=== PATIENT | male | born 1930 | race Caucasian/White ===

== ENCOUNTER → 2016-11-30 | Outpatient (REF) | payer MEDICARE ==
[~2016-11-30] MED LIST: AZIT250T3 PO; CARV6.25 PO; CEFT500T3 PO; FINA5TAB2 PO; FISH500C PO; FLOM5CAP PO; MULT1TAB8 PO; OMEP40CA2 PO; TYLE167L PO; VITA-130 PO; VITA100037 PO
[2016-11-30 13:13] LABS: MEAN CORPUSCULAR HEMOGLOBIN 31.4 pg (27.0-33.0); MEAN CORPUSCULAR HGB CONC 32.5 g/dl (32.0-36.5); MEAN CORPUSCULAR VOLUME 96.6 fl (80.0-96.0); RED CELL DISTRIBUTION WIDTH 12.9 % (11.5-14.5); WHITE BLOOD COUNT 6.2 K/mm3 (4.0-10.0)
[2016-11-30 13:31] LABS: ALBUMIN 3.9 GM/DL (3.2-5.2); ALBUMIN/GLOBULIN RATIO 1.22 (1.00-1.93); BILIRUBIN,TOTAL 0.6 MG/DL (0.2-1.0); CALCIUM LEVEL 9.3 MG/DL (8.8-10.2); CREATININE FOR GFR 1.87 MG/DL (0.70-1.30); GLOMERULAR FILTRATION RATE 36.5 (>35); POTASSIUM SERUM 4.8 MEQ/L (3.5-5.1); TOTAL PROTEIN 7.1 GM/DL (6.4-8.2)
== END ==
LOC: M SFHCPLAZ 09:22
PROVIDERS: ATTEND Internal Medicine
DX: M79.7 Fibromyalgia (principal); N18.3 Chronic kidney disease, stage 3 (moderate); R73.01 Impaired fasting glucose; E78.00 Pure hypercholesterolemia, unspecified

== ENCOUNTER → 2017-06-11 | Outpatient (REF) | payer MEDICARE ==
[~2017-06-11] MED LIST changes: +AZIT-12 PO; -AZIT250T3 PO; -VITA-130 PO; -VITA100037 PO; +VITA100067 PO; +VITA500T PO
[2017-06-11 12:52] LABS: MEAN CORPUSCULAR HEMOGLOBIN 30.6 pg (27.0-33.0); MEAN CORPUSCULAR HGB CONC 32.1 g/dl (32.0-36.5); MEAN CORPUSCULAR VOLUME 95.4 fl (80.0-96.0); RED CELL DISTRIBUTION WIDTH 13.3 % (11.5-14.5)
[2017-06-11 13:08] LABS: ALBUMIN 3.9 GM/DL (3.2-5.2); ALBUMIN/GLOBULIN RATIO 1.15 (1.00-1.93); BILIRUBIN,TOTAL 0.6 MG/DL (0.2-1.0); CALCIUM LEVEL 9.1 MG/DL (8.8-10.2); CREATININE FOR GFR 2.05 MG/DL (0.70-1.30); GLOMERULAR FILTRATION RATE 32.8 (>35); POTASSIUM SERUM 4.7 MEQ/L (3.5-5.1); TOTAL PROTEIN 7.3 GM/DL (6.4-8.2)
== END ==
LOC: M SFHCPLAZ 09:31
PROVIDERS: ATTEND Internal Medicine
DX: N18.3 Chronic kidney disease, stage 3 (moderate) (principal); R73.01 Impaired fasting glucose

== ENCOUNTER 2018-01-21 02:28 | Inpatient (IN) | payer MEDICARE ==
[2018-01-21 06:55] LABS: BASO % 0.4 % (0.0-1.0); EOS # 0.1 10^3/uL (0.0-0.50); EOS % 1.2 % (0.0-3.0); HEMATOCRIT 37.1 % (42.0-52.0); HEMOGLOBIN 11.8 g/dl (13.5-17.5); IMMATURE GRANULOCYTE % 0.1 % (0-3.0); LYMPH # 1.6 10^3/uL (1.5-4.5); LYMPH % 18.7 % (24.0-44.0); MEAN CORPUSCULAR HEMOGLOBIN 29.9 pg (27.0-33.0); MEAN CORPUSCULAR HGB CONC 31.8 g/dl (32.0-36.5); MEAN CORPUSCULAR VOLUME 94.2 fl (80.0-96.0); MONO # 0.7 10^3/uL (0.0-0.8); MONO % 8.4 % (0.0-5.0); NEUTROPHILS % 71.2 % (36.0-66.0); PLATELET COUNT, AUTOMATED 278 10^3/uL (150-450); RED BLOOD COUNT 3.94 10^6/uL (4.30-6.10); RED CELL DISTRIBUTION WIDTH 14.6 % (11.5-14.5); WHITE BLOOD COUNT 8.4 10^3/uL (4.0-10.0)
[2018-01-21 06:56] LABS: ALBUMIN 3.6 GM/DL (3.2-5.2); ALBUMIN/GLOBULIN RATIO 1.09 (1.00-1.93); ALKALINE PHOSPHATASE 125 U/L (45-117); ALT/SGPT 83 U/L (12-78); ANION GAP 9 MEQ/L (8-16); AST/SGOT 66 U/L (7-37); BILIRUBIN,DIRECT 0.2 MG/DL (0.0-0.2); BILIRUBIN,TOTAL 0.7 MG/DL (0.2-1.0); BLOOD UREA NITROGEN 47 MG/DL (7-18); CARBON DIOXIDE LEVEL 26 MEQ/L (21-32); CHLORIDE LEVEL 108 MEQ/L (98-107); CK-MB VALUE MASS 1.9 NG/ML (<3.6); CPK CREATINE PHOSPHOKINASE 79 U/L (39-308); CREATININE FOR GFR 2.48 MG/DL (0.70-1.30); GLOMERULAR FILTRATION RATE 26.3 (>35); GLUCOSE, FASTING 154 MG/DL (70-100); LIPASE 262 U/L (73-393); POTASSIUM SERUM 4.6 MEQ/L (3.5-5.1); SODIUM LEVEL 143 MEQ/L (136-145); TOTAL PROTEIN 6.9 GM/DL (6.4-8.2); TROPONIN I 0.03 NG/ML (< 0.10)
[2018-01-21] MEDS: NS 500 ML IV (07:28)
[2018-01-21] MEDS: VITAMIN D 1,000 INTERNATIONAL UNITS TABLET PO (09:00)
[2018-01-21] MEDS: VITAMIN E 400 INTERNATIONAL UNITS CAP PO (09:00)
[2018-01-21 11:40] LABS: CK-MB VALUE MASS 2.2 NG/ML (<3.6); CPK CREATINE PHOSPHOKINASE 72 U/L (39-308); MB/CK RELATIVE INDEX 3.05 (< OR =4); TROPONIN I 0.08 NG/ML (< 0.10)
[2018-01-21 12:24] LABS: NT-PRO BNP 23221 PG/ML (<450)
[2018-01-21 12:27] LABS: LACTIC ACID SEPSIS PROTOCOL 1.8 MMOL/L (0.4-2.0)
[2018-01-21] MEDS: FUROSEMIDE 40 MG/4 ML VIAL (J1940) IV ×2 (12:59→17:00)
[2018-01-21] MEDS: AZITHROMYCIN INJ 500 MG, VIAL MATE ADAPTER 1 EACH in D5W 250 ML IV (13:00)
[2018-01-21] MEDS: ACETAMINOPHEN TAB 650MG DOSE (2X325MG) PO (14:34)
[2018-01-21] MEDS: cefTRIAXone SOD 1 GM in D5W MINI-BAG PLUS 50 ML IV (14:34)
[2018-01-21] MEDS: HEPARIN SOD (PORCINE) 5000 UNITS/ML VIAL SC ×2 (14:34→21:39)
[2018-01-21] MEDS: PERCOCET 5MG/325MG TAB PO (15:03)
[2018-01-21 17:12] LABS: CK-MB VALUE MASS 2.3 NG/ML (<3.6); CPK CREATINE PHOSPHOKINASE 75 U/L (39-308); MB/CK RELATIVE INDEX 3.06 (< OR =4)
[2018-01-21] MEDS: OMEPRAZOLE 20 MG CAP PO (18:43)
[2018-01-21] MEDS: ATORVASTATIN 20 MG TAB PO (18:43)
[2018-01-21] MEDS: FINASTERIDE 5 MG TAB PO (18:43)
[2018-01-21] MEDS: TAMSULOSIN 0.4 MG CAP PO (18:43)
[2018-01-21] MEDS: CALCITRIOL 0.25 MCG CAP (S0169) PO (18:43)
[2018-01-21] MEDS: MULTIVITAMINS/MINERALS THERAP 1 TAB PO (18:44)
[2018-01-21] MEDS: CARVedilol 12.5 MG TAB PO (21:00)
[2018-01-21] MEDS: MIRTAZAPINE 15 MG TAB PO (21:39)
[2018-01-22] MEDS ORDERED: SLF 3 ML SYR IV (03:30)
[2018-01-22 04:54] LABS: BASO % 0.3 % (0.0-1.0); EOS # 0.2 10^3/uL (0.0-0.50); EOS % 2.2 % (0.0-3.0); HEMATOCRIT 31.2 % (42.0-52.0); IMMATURE GRANULOCYTE % 0.1 % (0-3.0); LYMPH # 2.6 10^3/uL (1.5-4.5); LYMPH % 36.7 % (24.0-44.0); MEAN CORPUSCULAR HEMOGLOBIN 29.8 pg (27.0-33.0); MEAN CORPUSCULAR HGB CONC 32.1 g/dl (32.0-36.5); MEAN CORPUSCULAR VOLUME 92.9 fl (80.0-96.0); MONO # 0.7 10^3/uL (0.0-0.8); MONO % 10.4 % (0.0-5.0); NEUTROPHILS # 3.5 10^3/uL (1.8-7.7); NEUTROPHILS % 50.3 % (36.0-66.0); PLATELET COUNT, AUTOMATED 228 10^3/uL (150-450); RED BLOOD COUNT 3.36 10^6/uL (4.30-6.10); RED CELL DISTRIBUTION WIDTH 14.7 % (11.5-14.5)
[2018-01-22 05:15] LABS: ALBUMIN 2.8 GM/DL (3.2-5.2); ALBUMIN/GLOBULIN RATIO 0.93 (1.00-1.93); ALKALINE PHOSPHATASE 94 U/L (45-117); ALT/SGPT 48 U/L (12-78); ANION GAP 7 MEQ/L (8-16); AST/SGOT 20 U/L (7-37); BILIRUBIN,TOTAL 0.5 MG/DL (0.2-1.0); BLOOD UREA NITROGEN 49 MG/DL (7-18); CALCIUM LEVEL 8.2 MG/DL (8.8-10.2); CARBON DIOXIDE LEVEL 27 MEQ/L (21-32); CHLORIDE LEVEL 111 MEQ/L (98-107); CREATININE FOR GFR 2.24 MG/DL (0.70-1.30); GLOMERULAR FILTRATION RATE 29.5 (>35); GLUCOSE, FASTING 96 MG/DL (70-100); MAGNESIUM LEVEL 2.5 MG/DL (1.8-2.4); POTASSIUM SERUM 4.1 MEQ/L (3.5-5.1); SODIUM LEVEL 145 MEQ/L (136-145); TOTAL PROTEIN 5.8 GM/DL (6.4-8.2)
[2018-01-22] MEDS: HEPARIN SOD (PORCINE) 5000 UNITS/ML VIAL SC ×3 (05:30→21:29)
[2018-01-22] MEDS: SLF 3 ML SYR IV ×3 (05:30→21:29)
[2018-01-22 08:28] LABS: LACTIC ACID SEPSIS PROTOCOL 1.7 MMOL/L (0.4-2.0)
[2018-01-22] MEDS: VITAMIN D 1,000 INTERNATIONAL UNITS TABLET PO (09:00)
[2018-01-22] MEDS: VITAMIN E 400 INTERNATIONAL UNITS CAP PO (09:00)
[2018-01-22] MEDS: FUROSEMIDE 40 MG/4 ML VIAL (J1940) IV (09:43)
[2018-01-22] MEDS: OMEPRAZOLE 20 MG CAP PO (09:47)
[2018-01-22] MEDS: FINASTERIDE 5 MG TAB PO (09:48)
[2018-01-22] MEDS: CARVedilol 3.125 MG TAB PO ×2 (09:48→21:29)
[2018-01-22] MEDS: ATORVASTATIN 20 MG TAB PO (09:48)
[2018-01-22] MEDS: MULTIVITAMINS/MINERALS THERAP 1 TAB PO (09:48)
[2018-01-22] MEDS: cefTRIAXone SOD 1 GM in D5W MINI-BAG PLUS 50 ML IV (14:00)
[2018-01-22] MEDS: AZITHROMYCIN INJ 500 MG, VIAL MATE ADAPTER 1 EACH in D5W 250 ML IV (15:09)
[2018-01-22] MEDS: TAMSULOSIN 0.4 MG CAP PO (18:19)
[2018-01-22] MEDS: MOM 30ML SUSPENSION UDC PO (18:48)
[2018-01-22] MEDS: SENOKOT S TAB PO (18:48)
[2018-01-22] MEDS: MIRTAZAPINE 15 MG TAB PO (21:29)
[2018-01-22] MEDS: ACETAMINOPHEN TAB 650MG DOSE (2X325MG) PO (21:30)
[2018-01-23] MEDS: HEPARIN SOD (PORCINE) 5000 UNITS/ML VIAL SC ×3 (05:48→21:33)
[2018-01-23] MEDS: SLF 3 ML SYR IV ×3 (06:00→21:33)
[2018-01-23 06:41] LABS: BASO % 0.3 % (0.0-1.0); EOS # 0.2 10^3/uL (0.0-0.50); HEMATOCRIT 33.6 % (42.0-52.0); HEMOGLOBIN 10.9 g/dl (13.5-17.5); IMMATURE GRANULOCYTE % 0.3 % (0-3.0); LYMPH # 1.9 10^3/uL (1.5-4.5); LYMPH % 24.1 % (24.0-44.0); MEAN CORPUSCULAR HEMOGLOBIN 30.2 pg (27.0-33.0); MEAN CORPUSCULAR HGB CONC 32.4 g/dl (32.0-36.5); MEAN CORPUSCULAR VOLUME 93.1 fl (80.0-96.0); MONO # 0.8 10^3/uL (0.0-0.8); MONO % 10.2 % (0.0-5.0); NEUTROPHILS # 5.1 10^3/uL (1.8-7.7); NEUTROPHILS % 63.1 % (36.0-66.0); PLATELET COUNT, AUTOMATED 253 10^3/uL (150-450); RED BLOOD COUNT 3.61 10^6/uL (4.30-6.10); RED CELL DISTRIBUTION WIDTH 14.8 % (11.5-14.5)
[2018-01-23 07:08] LABS: ALBUMIN/GLOBULIN RATIO 0.91 (1.00-1.93); ALKALINE PHOSPHATASE 91 U/L (45-117); ALT/SGPT 46 U/L (12-78); ANION GAP 7 MEQ/L (8-16); AST/SGOT 18 U/L (7-37); BILIRUBIN,TOTAL 0.5 MG/DL (0.2-1.0); BLOOD UREA NITROGEN 43 MG/DL (7-18); CALCIUM LEVEL 8.6 MG/DL (8.8-10.2); CARBON DIOXIDE LEVEL 27 MEQ/L (21-32); CHLORIDE LEVEL 111 MEQ/L (98-107); CREATININE FOR GFR 1.89 MG/DL (0.70-1.30); GLOMERULAR FILTRATION RATE 35.9 (>35); GLUCOSE, FASTING 118 MG/DL (70-100); MAGNESIUM LEVEL 2.9 MG/DL (1.8-2.4); POTASSIUM SERUM 4.8 MEQ/L (3.5-5.1); SODIUM LEVEL 145 MEQ/L (136-145); TOTAL PROTEIN 6.3 GM/DL (6.4-8.2)
[2018-01-23] MEDS ORDERED: FUROSEMIDE 40 MG/4 ML VIAL (J1940) IV (09:00)
[2018-01-23] MEDS: MULTIVITAMINS/MINERALS THERAP 1 TAB PO (09:41)
[2018-01-23] MEDS: FINASTERIDE 5 MG TAB PO (09:41)
[2018-01-23] MEDS: OMEPRAZOLE 20 MG CAP PO (09:41)
[2018-01-23] MEDS: VITAMIN E 400 INTERNATIONAL UNITS CAP PO (09:41)
[2018-01-23] MEDS: ATORVASTATIN 20 MG TAB PO (09:41)
[2018-01-23] MEDS: CARVedilol 3.125 MG TAB PO ×2 (09:42→21:32)
[2018-01-23] MEDS: VITAMIN D 1,000 INTERNATIONAL UNITS TABLET PO (09:42)
[2018-01-23] MEDS: GI COCKTAIL 50ML BTL(HYOSCYAMINE/MAALOX/LIDOCAINE VISCOUS)(1:3:1) PO (09:44)
[2018-01-23] MEDS: FUROSEMIDE 40 MG/4 ML VIAL (J1940) IV (09:44)
[2018-01-23] MEDS: cefTRIAXone SOD 1 GM in D5W MINI-BAG PLUS 50 ML IV (14:13)
[2018-01-23] MEDS: AZITHROMYCIN INJ 500 MG, VIAL MATE ADAPTER 1 EACH in D5W 250 ML IV (15:30)
[2018-01-23] MEDS ORDERED: ONDANSETRON 4MG/2ML VIAL (J2405) As Ordered (17:40)
[2018-01-23] MEDS ORDERED: NS 250 ML IV (17:45)
[2018-01-23] MEDS: TAMSULOSIN 0.4 MG CAP PO (17:56)
[2018-01-23] MEDS: ONDANSETRON 4MG/2ML VIAL (J2405) IV (17:56)
[2018-01-23] MEDS: SODIUM CHLORIDE 0.9% 1000 ML IV (18:01)
[2018-01-23 19:09] LABS: LACTIC ACID SEPSIS PROTOCOL 3.7 MMOL/L (0.4-2.0)
[2018-01-23] MEDS: NS 1,000 ML IV (20:09)
[2018-01-23] MEDS: MIRTAZAPINE 15 MG TAB PO (21:31)
[2018-01-24] MEDS: HEPARIN SOD (PORCINE) 5000 UNITS/ML VIAL SC ×3 (05:38→21:02)
[2018-01-24] MEDS: SLF 3 ML SYR IV ×3 (05:39→22:00)
[2018-01-24 06:22] LABS: BASO % 0.1 % (0.0-1.0); EOS # 0.1 10^3/uL (0.0-0.50); EOS % 1.6 % (0.0-3.0); HEMATOCRIT 31.3 % (42.0-52.0); IMMATURE GRANULOCYTE % 0.3 % (0-3.0); LYMPH # 2.2 10^3/uL (1.5-4.5); LYMPH % 31.9 % (24.0-44.0); MEAN CORPUSCULAR HEMOGLOBIN 29.8 pg (27.0-33.0); MEAN CORPUSCULAR HGB CONC 31.9 g/dl (32.0-36.5); MEAN CORPUSCULAR VOLUME 93.2 fl (80.0-96.0); MONO # 0.7 10^3/uL (0.0-0.8); MONO % 10.7 % (0.0-5.0); NEUTROPHILS # 3.7 10^3/uL (1.8-7.7); NEUTROPHILS % 55.4 % (36.0-66.0); PLATELET COUNT, AUTOMATED 218 10^3/uL (150-450); RED BLOOD COUNT 3.36 10^6/uL (4.30-6.10); WHITE BLOOD COUNT 6.7 10^3/uL (4.0-10.0)
[2018-01-24 06:47] LABS: ALBUMIN 2.8 GM/DL (3.2-5.2); ALBUMIN/GLOBULIN RATIO 0.88 (1.00-1.93); ALKALINE PHOSPHATASE 81 U/L (45-117); ALT/SGPT 37 U/L (12-78); ANION GAP 7 MEQ/L (8-16); AST/SGOT 16 U/L (7-37); BILIRUBIN,TOTAL 0.4 MG/DL (0.2-1.0); BLOOD UREA NITROGEN 39 MG/DL (7-18); CALCIUM LEVEL 8.1 MG/DL (8.8-10.2); CARBON DIOXIDE LEVEL 27 MEQ/L (21-32); CHLORIDE LEVEL 110 MEQ/L (98-107); CREATININE FOR GFR 1.98 MG/DL (0.70-1.30); GLOMERULAR FILTRATION RATE 34.1 (>35); GLUCOSE, FASTING 99 MG/DL (70-100); MAGNESIUM LEVEL 2.7 MG/DL (1.8-2.4); POTASSIUM SERUM 4.4 MEQ/L (3.5-5.1); SODIUM LEVEL 144 MEQ/L (136-145)
[2018-01-24 07:26] LABS: TROPONIN I 0.06 NG/ML (< 0.10)
[2018-01-24] MEDS: FINASTERIDE 5 MG TAB PO (08:30)
[2018-01-24] MEDS: CALCITRIOL 0.25 MCG CAP (S0169) PO (08:30)
[2018-01-24] MEDS: ATORVASTATIN 20 MG TAB PO (08:31)
[2018-01-24] MEDS: MULTIVITAMINS/MINERALS THERAP 1 TAB PO (08:31)
[2018-01-24] MEDS: VITAMIN D 1,000 INTERNATIONAL UNITS TABLET PO (08:31)
[2018-01-24] MEDS: OMEPRAZOLE 20 MG CAP PO (08:31)
[2018-01-24] MEDS: VITAMIN E 400 INTERNATIONAL UNITS CAP PO (08:32)
[2018-01-24] MEDS: CARVedilol 3.125 MG TAB PO (08:32)
[2018-01-24] MEDS: AZITHROMYCIN INJ 500 MG, VIAL MATE ADAPTER 1 EACH in D5W 250 ML IV (12:56)
[2018-01-24] MEDS: ONDANSETRON 4MG/2ML VIAL (J2405) IV (14:01)
[2018-01-24 14:10] LABS: BEDSIDE GLUCOSE 184 MG/DL (83-110)
[2018-01-24] MEDS: CEFDINIR 300 MG CAP (OMNICEF) PO (15:54)
[2018-01-24 16:25] LABS: C REACTIVE PROTEIN QUANTITATIV 0.77 MG/DL (0.00-0.30)
[2018-01-24] MEDS: NS 500 ML IV (16:42)
[2018-01-24 17:12] LABS: ERYTHROCYTE SEDIMENTATION RATE 15 mm/hr (0-30)
[2018-01-24] MEDS: TAMSULOSIN 0.4 MG CAP PO (17:21)
[2018-01-24] MEDS: MEROPENEM INJ 1 GM in APPROPRIATE DILUENT 1 EA IV ×2 (17:21→23:38)
[2018-01-24] MEDS: CEFTAROLINE FOSAMIL 300 MG in D5W 50 ML IV (18:03)
[2018-01-24 18:55] LABS: LACTIC ACID SEPSIS PROTOCOL 3.4 MMOL/L (0.4-2.0)
[2018-01-24] MEDS: SODIUM CHLORIDE 0.9% 1000 ML IV (20:30)
[2018-01-24] MEDS: MIRTAZAPINE 15 MG TAB PO (21:04)
[2018-01-24] MEDS: DIGOXIN 0.25 MG TAB PO (21:04)
[2018-01-25] MEDS: HEPARIN SOD (PORCINE) 5000 UNITS/ML VIAL SC ×3 (05:01→21:13)
[2018-01-25] MEDS: CEFTAROLINE FOSAMIL 300 MG in D5W 50 ML IV ×2 (05:01→17:22)
[2018-01-25] MEDS: SLF 3 ML SYR IV ×3 (05:01→21:13)
[2018-01-25 05:06] LABS: BASO % 0.4 % (0.0-1.0); EOS # 0.1 10^3/uL (0.0-0.50); EOS % 1.6 % (0.0-3.0); HEMATOCRIT 30.8 % (42.0-52.0); HEMOGLOBIN 9.9 g/dl (13.5-17.5); IMMATURE GRANULOCYTE % 0.3 % (0-3.0); LYMPH # 2.5 10^3/uL (1.5-4.5); MEAN CORPUSCULAR HEMOGLOBIN 30.2 pg (27.0-33.0); MEAN CORPUSCULAR HGB CONC 32.1 g/dl (32.0-36.5); MEAN CORPUSCULAR VOLUME 93.9 fl (80.0-96.0); MONO # 0.7 10^3/uL (0.0-0.8); MONO % 10.8 % (0.0-5.0); NEUTROPHILS # 3.3 10^3/uL (1.8-7.7); NEUTROPHILS % 49.9 % (36.0-66.0); PLATELET COUNT, AUTOMATED 204 10^3/uL (150-450); RED BLOOD COUNT 3.28 10^6/uL (4.30-6.10); RED CELL DISTRIBUTION WIDTH 15.1 % (11.5-14.5); WHITE BLOOD COUNT 6.7 10^3/uL (4.0-10.0)
[2018-01-25 05:27] LABS: ALBUMIN 2.7 GM/DL (3.2-5.2); ALBUMIN/GLOBULIN RATIO 0.96 (1.00-1.93); ALKALINE PHOSPHATASE 98 U/L (45-117); ALT/SGPT 60 U/L (12-78); ANION GAP 6 MEQ/L (8-16); AST/SGOT 36 U/L (7-37); BILIRUBIN,TOTAL 0.4 MG/DL (0.2-1.0); BLOOD UREA NITROGEN 44 MG/DL (7-18); CALCIUM LEVEL 7.8 MG/DL (8.8-10.2); CARBON DIOXIDE LEVEL 24 MEQ/L (21-32); CHLORIDE LEVEL 112 MEQ/L (98-107); CREATININE FOR GFR 2.06 MG/DL (0.70-1.30); GLOMERULAR FILTRATION RATE 32.5 (>35); GLUCOSE, FASTING 84 MG/DL (70-100); MAGNESIUM LEVEL 2.8 MG/DL (1.8-2.4); POTASSIUM SERUM 4.7 MEQ/L (3.5-5.1); SODIUM LEVEL 142 MEQ/L (136-145); TOTAL PROTEIN 5.5 GM/DL (6.4-8.2)
[2018-01-25] MEDS: OMEPRAZOLE 20 MG CAP PO (08:57)
[2018-01-25] MEDS: ATORVASTATIN 20 MG TAB PO (08:57)
[2018-01-25] MEDS: DIGOXIN 0.125 MG TAB PO (08:57)
[2018-01-25] MEDS: FINASTERIDE 5 MG TAB PO (08:57)
[2018-01-25] MEDS: MEROPENEM INJ 1 GM in APPROPRIATE DILUENT 1 EA IV ×3 (08:57→23:18)
[2018-01-25] MEDS: VITAMIN E 400 INTERNATIONAL UNITS CAP PO (08:57)
[2018-01-25] MEDS: VITAMIN D 1,000 INTERNATIONAL UNITS TABLET PO (08:57)
[2018-01-25] MEDS: MULTIVITAMINS/MINERALS THERAP 1 TAB PO (08:57)
[2018-01-25] MEDS ORDERED: AZITHROMYCIN 250 MG TAB PO (09:00)
[2018-01-25] MEDS ORDERED: LIDOCAINE 1% MDV 20ML VIAL As Ordered (11:54)
[2018-01-25] MEDS: TAMSULOSIN 0.4 MG CAP PO (17:22)
[2018-01-25] MEDS: ONDANSETRON 4MG/2ML VIAL (J2405) IV (19:34)
[2018-01-25] MEDS: MIRTAZAPINE 15 MG TAB PO (21:13)
[2018-01-26 05:01] LABS: BASO % 0.3 % (0.0-1.0); EOS # 0.1 10^3/uL (0.0-0.50); EOS % 1.9 % (0.0-3.0); HEMATOCRIT 34.5 % (42.0-52.0); HEMOGLOBIN 10.9 g/dl (13.5-17.5); IMMATURE GRANULOCYTE % 0.3 % (0-3.0); LYMPH # 1.7 10^3/uL (1.5-4.5); MEAN CORPUSCULAR HEMOGLOBIN 30.1 pg (27.0-33.0); MEAN CORPUSCULAR HGB CONC 31.6 g/dl (32.0-36.5); MEAN CORPUSCULAR VOLUME 95.3 fl (80.0-96.0); MONO # 0.8 10^3/uL (0.0-0.8); MONO % 11.2 % (0.0-5.0); NEUTROPHILS # 4.6 10^3/uL (1.8-7.7); NEUTROPHILS % 63.3 % (36.0-66.0); PLATELET COUNT, AUTOMATED 222 10^3/uL (150-450); RED BLOOD COUNT 3.62 10^6/uL (4.30-6.10); WHITE BLOOD COUNT 7.3 10^3/uL (4.0-10.0)
[2018-01-26 05:26] LABS: ALBUMIN 2.9 GM/DL (3.2-5.2); ALBUMIN/GLOBULIN RATIO 0.81 (1.00-1.93); ALKALINE PHOSPHATASE 106 U/L (45-117); ALT/SGPT 57 U/L (12-78); ANION GAP 7 MEQ/L (8-16); AST/SGOT 29 U/L (7-37); BILIRUBIN,TOTAL 0.6 MG/DL (0.2-1.0); BLOOD UREA NITROGEN 40 MG/DL (7-18); CALCIUM LEVEL 8.6 MG/DL (8.8-10.2); CARBON DIOXIDE LEVEL 25 MEQ/L (21-32); CHLORIDE LEVEL 112 MEQ/L (98-107); CREATININE FOR GFR 2.08 MG/DL (0.70-1.30); GLOMERULAR FILTRATION RATE 32.2 (>35); GLUCOSE, FASTING 88 MG/DL (70-100); MAGNESIUM LEVEL 2.7 MG/DL (1.8-2.4); POTASSIUM SERUM 4.7 MEQ/L (3.5-5.1); SODIUM LEVEL 144 MEQ/L (136-145); TOTAL PROTEIN 6.5 GM/DL (6.4-8.2)
[2018-01-26] MEDS: HEPARIN SOD (PORCINE) 5000 UNITS/ML VIAL SC ×3 (06:00→22:00)
[2018-01-26] MEDS: CEFTAROLINE FOSAMIL 300 MG in D5W 50 ML IV ×2 (06:11→18:00)
[2018-01-26] MEDS: SLF 3 ML SYR IV ×3 (06:11→22:00)
[2018-01-26] MEDS: DIGOXIN 0.125 MG TAB PO (09:00)
[2018-01-26] MEDS: MULTIVITAMINS/MINERALS THERAP 1 TAB PO (09:03)
[2018-01-26] MEDS: VITAMIN E 400 INTERNATIONAL UNITS CAP PO (09:03)
[2018-01-26] MEDS: VITAMIN D 1,000 INTERNATIONAL UNITS TABLET PO (09:04)
[2018-01-26] MEDS: MEROPENEM INJ 1 GM in APPROPRIATE DILUENT 1 EA IV ×3 (09:04→23:47)
[2018-01-26] MEDS: FINASTERIDE 5 MG TAB PO (09:04)
[2018-01-26] MEDS: ATORVASTATIN 20 MG TAB PO (09:04)
[2018-01-26] MEDS: OMEPRAZOLE 20 MG CAP PO (09:04)
[2018-01-26] MEDS: FUROSEMIDE 40 MG/4 ML VIAL (J1940) IV (09:04)
[2018-01-26] MEDS: CALCITRIOL 0.25 MCG CAP (S0169) PO (10:03)
[2018-01-26] MEDS: TAMSULOSIN 0.4 MG CAP PO (17:30)
[2018-01-26] MEDS: MIRTAZAPINE 15 MG TAB PO (21:00)
[2018-01-27] MEDS: HEPARIN SOD (PORCINE) 5000 UNITS/ML VIAL SC ×3 (05:29→21:54)
[2018-01-27] MEDS: SLF 3 ML SYR IV ×3 (05:30→21:54)
[2018-01-27] MEDS: CEFTAROLINE FOSAMIL 300 MG in D5W 50 ML IV (05:30)
[2018-01-27 05:57] LABS: BASO % 0.4 % (0.0-1.0); EOS # 0.2 10^3/uL (0.0-0.50); EOS % 2.6 % (0.0-3.0); HEMATOCRIT 37.2 % (42.0-52.0); HEMOGLOBIN 11.8 g/dl (13.5-17.5); IMMATURE GRANULOCYTE % 0.3 % (0-3.0); LYMPH % 25.5 % (24.0-44.0); MEAN CORPUSCULAR HEMOGLOBIN 29.7 pg (27.0-33.0); MEAN CORPUSCULAR HGB CONC 31.7 g/dl (32.0-36.5); MEAN CORPUSCULAR VOLUME 93.7 fl (80.0-96.0); MONO % 12.3 % (0.0-5.0); NEUTROPHILS # 4.6 10^3/uL (1.8-7.7); NEUTROPHILS % 58.9 % (36.0-66.0); PLATELET COUNT, AUTOMATED 252 10^3/uL (150-450); RED BLOOD COUNT 3.97 10^6/uL (4.30-6.10); RED CELL DISTRIBUTION WIDTH 15.2 % (11.5-14.5); WHITE BLOOD COUNT 7.8 10^3/uL (4.0-10.0)
[2018-01-27 06:06] LABS: ALBUMIN 2.8 GM/DL (3.2-5.2); ALBUMIN/GLOBULIN RATIO 0.78 (1.00-1.93); ALKALINE PHOSPHATASE 96 U/L (45-117); ALT/SGPT 45 U/L (12-78); ANION GAP 6 MEQ/L (8-16); AST/SGOT 20 U/L (7-37); BILIRUBIN,TOTAL 0.6 MG/DL (0.2-1.0); BLOOD UREA NITROGEN 35 MG/DL (7-18); CALCIUM LEVEL 8.8 MG/DL (8.8-10.2); CARBON DIOXIDE LEVEL 27 MEQ/L (21-32); CHLORIDE LEVEL 111 MEQ/L (98-107); CREATININE FOR GFR 2.09 MG/DL (0.70-1.30); GLUCOSE, FASTING 102 MG/DL (70-100); MAGNESIUM LEVEL 2.6 MG/DL (1.8-2.4); POTASSIUM SERUM 4.3 MEQ/L (3.5-5.1); SODIUM LEVEL 144 MEQ/L (136-145); TOTAL PROTEIN 6.4 GM/DL (6.4-8.2)
[2018-01-27] MEDS: ATORVASTATIN 20 MG TAB PO (08:27)
[2018-01-27] MEDS: MULTIVITAMINS/MINERALS THERAP 1 TAB PO (08:27)
[2018-01-27] MEDS: FINASTERIDE 5 MG TAB PO (08:27)
[2018-01-27] MEDS: VITAMIN D 1,000 INTERNATIONAL UNITS TABLET PO (08:27)
[2018-01-27] MEDS: DIGOXIN 0.0625MG PER 1/2TABLET PO (08:27)
[2018-01-27] MEDS: MEROPENEM INJ 1 GM in APPROPRIATE DILUENT 1 EA IV ×3 (08:27→23:46)
[2018-01-27] MEDS: OMEPRAZOLE 20 MG CAP PO (08:27)
[2018-01-27] MEDS: VITAMIN E 400 INTERNATIONAL UNITS CAP PO (08:27)
[2018-01-27] MEDS: FUROSEMIDE 40 MG/4 ML VIAL (J1940) IV (08:28)
[2018-01-27] MEDS: ACETAMINOPHEN TAB 650MG DOSE (2X325MG) PO (13:38)
[2018-01-27] MEDS: TAMSULOSIN 0.4 MG CAP PO (17:29)
[2018-01-27] MEDS: ONDANSETRON 4MG/2ML VIAL (J2405) IV (17:29)
[2018-01-27] MEDS: MIRTAZAPINE 15 MG TAB PO (21:53)
[2018-01-28] MEDS: SLF 3 ML SYR IV ×2 (06:12→14:00)
[2018-01-28] MEDS: HEPARIN SOD (PORCINE) 5000 UNITS/ML VIAL SC ×2 (06:12→14:00)
[2018-01-28 06:37] LABS: BASO % 0.6 % (0.0-1.0); EOS # 0.3 10^3/uL (0.0-0.50); EOS % 3.7 % (0.0-3.0); HEMATOCRIT 33.7 % (42.0-52.0); IMMATURE GRANULOCYTE % 0.4 % (0-3.0); MEAN CORPUSCULAR HEMOGLOBIN 30.6 pg (27.0-33.0); MEAN CORPUSCULAR HGB CONC 32.6 g/dl (32.0-36.5); MEAN CORPUSCULAR VOLUME 93.6 fl (80.0-96.0); MONO # 0.9 10^3/uL (0.0-0.8); NEUTROPHILS % 55.3 % (36.0-66.0); PLATELET COUNT, AUTOMATED 226 10^3/uL (150-450); RED CELL DISTRIBUTION WIDTH 15.2 % (11.5-14.5); WHITE BLOOD COUNT 7.2 10^3/uL (4.0-10.0)
[2018-01-28 07:01] LABS: ALBUMIN 2.5 GM/DL (3.2-5.2); ALBUMIN/GLOBULIN RATIO 0.78 (1.00-1.93); ALKALINE PHOSPHATASE 82 U/L (45-117); ALT/SGPT 33 U/L (12-78); ANION GAP 7 MEQ/L (8-16); AST/SGOT 14 U/L (7-37); BILIRUBIN,TOTAL 0.5 MG/DL (0.2-1.0); BLOOD UREA NITROGEN 30 MG/DL (7-18); CALCIUM LEVEL 8.3 MG/DL (8.8-10.2); CARBON DIOXIDE LEVEL 27 MEQ/L (21-32); CHLORIDE LEVEL 110 MEQ/L (98-107); CREATININE FOR GFR 2.05 MG/DL (0.70-1.30); GLOMERULAR FILTRATION RATE 32.7 (>35); GLUCOSE, FASTING 94 MG/DL (70-100); POTASSIUM SERUM 4.2 MEQ/L (3.5-5.1); SODIUM LEVEL 144 MEQ/L (136-145); TOTAL PROTEIN 5.7 GM/DL (6.4-8.2)
[2018-01-28 07:02] LABS: MAGNESIUM LEVEL 2.5 MG/DL (1.8-2.4)
[2018-01-28] MEDS: ATORVASTATIN 20 MG TAB PO (10:09)
[2018-01-28] MEDS: CEPHALEXIN 500 MG CAP PO (10:09)
[2018-01-28] MEDS: OMEPRAZOLE 20 MG CAP PO (10:09)
[2018-01-28] MEDS: FINASTERIDE 5 MG TAB PO (10:10)
[2018-01-28] MEDS: VITAMIN D 1,000 INTERNATIONAL UNITS TABLET PO (10:10)
[2018-01-28] MEDS: VITAMIN E 400 INTERNATIONAL UNITS CAP PO (10:10)
[2018-01-28] MEDS: DIGOXIN 0.0625MG PER 1/2TABLET PO (10:10)
[2018-01-28] MEDS: CALCITRIOL 0.25 MCG CAP (S0169) PO (10:10)
[2018-01-28] MEDS: MULTIVITAMINS/MINERALS THERAP 1 TAB PO (10:11)
[2018-01-28] MEDS: FUROSEMIDE 40 MG/4 ML VIAL (J1940) IV (10:11)
== END 2018-01-28 14:56 | disposition home health service (06) | DRG 291 ==
LOC: M MSPAV 01-22 10:45 → M ICU 01-24 21:51 → M MSPAV 01-26 22:35 → M ICU 01-24 21:56 → M ED 02:28 → M ED INP 11:05 → M PCU 17:32
PROC: 0F9430Z Drainage of Gallbladder with Drainage Device, Percutaneous Approach (ICD-10-PCS; principal; 2018-01-25)
DX: I13.0 Hypertensive heart and chronic kidney disease with heart failure and stage 1 through stage 4 chronic kidney disease, or unspecified chronic kidney disease (principal); I50.23 Acute on chronic systolic (congestive) heart failure; N17.9 Acute kidney failure, unspecified; E87.2 Acidosis; J90 Pleural effusion, not elsewhere classified; K81.2 Acute cholecystitis with chronic cholecystitis; E78.5 Hyperlipidemia, unspecified; N18.3 Chronic kidney disease, stage 3 (moderate); I45.10 Unspecified right bundle-branch block; I25.5 Ischemic cardiomyopathy; N40.0 Benign prostatic hyperplasia without lower urinary tract symptoms; G47.00 Insomnia, unspecified; E55.9 Vitamin D deficiency, unspecified; K21.9 Gastro-esophageal reflux disease without esophagitis; Z79.899 Other long term (current) drug therapy

== ENCOUNTER → 2018-02-08 | Outpatient (REF) | payer MEDICARE ==
[2018-02-08 15:28] LABS: HEMATOCRIT 39.4 % (42.0-52.0); HEMOGLOBIN 12.7 g/dl (13.5-17.5); MEAN CORPUSCULAR HGB CONC 32.2 g/dl (32.0-36.5); MEAN CORPUSCULAR VOLUME 93.1 fl (80.0-96.0); PLATELET COUNT, AUTOMATED 294 10^3/uL (150-450); RED BLOOD COUNT 4.23 10^6/uL (4.30-6.10); RED CELL DISTRIBUTION WIDTH 14.4 % (11.5-14.5); WHITE BLOOD COUNT 7.9 10^3/uL (4.0-10.0)
[2018-02-08 16:04] LABS: ALBUMIN 3.6 GM/DL (3.2-5.2); ALKALINE PHOSPHATASE 101 U/L (45-117); ALT/SGPT 22 U/L (12-78); ANION GAP 10 MEQ/L (8-16); AST/SGOT 16 U/L (7-37); BILIRUBIN,TOTAL 0.7 MG/DL (0.2-1.0); BLOOD UREA NITROGEN 33 MG/DL (7-18); CALCIUM LEVEL 9.3 MG/DL (8.8-10.2); CARBON DIOXIDE LEVEL 27 MEQ/L (21-32); CHLORIDE LEVEL 103 MEQ/L (98-107); CREATININE FOR GFR 1.99 MG/DL (0.70-1.30); DIGOXIN LEVEL 1.5 NG/ML (0.5-2.0); GLOMERULAR FILTRATION RATE 33.9 (>35); GLUCOSE, FASTING 121 MG/DL (70-100); MAGNESIUM LEVEL 2.4 MG/DL (1.8-2.4); POTASSIUM SERUM 4.8 MEQ/L (3.5-5.1); SODIUM LEVEL 140 MEQ/L (136-145); TOTAL PROTEIN 7.6 GM/DL (6.4-8.2)
== END ==
LOC: M SFHCPLAZ 14:18
DX: N18.3 Chronic kidney disease, stage 3 (moderate) (principal); I42.9 Cardiomyopathy, unspecified; Z87.19 Personal history of other diseases of the digestive system
CPT/HCPCS: 80162

== ENCOUNTER → 2018-02-17 | Outpatient (CLI) | payer MEDICARE ==
[~2018-02-17] MED LIST changes: -AZIT-12 PO; -CARV6.25 PO; -CEFT500T3 PO; -FINA5TAB2 PO; -FISH500C PO; -FLOM5CAP PO; +ISOVUE-370 76% 100ML VIAL (Q9967) As Ordered; -MULT1TAB8 PO; -OMEP40CA2 PO; -TYLE167L PO; -VITA100067 PO; -VITA500T PO
== END ==
LOC: M RADPRO 12:31
DX: K81.0 Acute cholecystitis (principal)
CPT/HCPCS: 47537

== ENCOUNTER → 2018-03-10 | Outpatient (REF) | payer MEDICARE ==
[2018-03-10 12:50] LABS: APPEARANCE, URINE HAZY (CLEAR); BACTERIA, URINE AUTO NEGATIVE (NEGATIVE); BILIRUBIN, URINE AUTO NEGATIVE (NEGATIVE); BLOOD, URINE BLOOD NEGATIVE (NEGATIVE); COLOR, URINE YELLOW (YELLOW); GLUCOSE, URINE (UA) AUTO NEGATIVE (NEGATIVE); KETONE, URINE AUTO TRACE mg/dL (NEGATIVE); LEUKOCYTE ESTERASE, URINE AUTO NEGATIVE (NEGATIVE); MUCUS, URINE SMALL (NEGATIVE); NITRITE, URINE AUTO NEGATIVE (NEGATIVE); PROTEIN, URINE AUTO NEGATIVE (NEGATIVE); RBC, URINE AUTO 0 /HPF (0-3); SPECIFIC GRAVITY URINE AUTO 1.018 (1.002-1.035); SQUAMOUS EPITHELIAL CELL UR AU 0 /HPF (0-6); URIC ACID CRYSTALS SMALL; UROBILINOGEN, URINE AUTO 0.2 mg/dL (0.0-2.0); WBC, URINE AUTO 3 /HPF (0-3)
== END ==
LOC: M SFHCPLAZ 08:56 → M SFHCADAM 08:57
DX: R35.0 Frequency of micturition (principal)
CPT/HCPCS: 81001

== ENCOUNTER 2018-04-16 07:29 | Emergency (ER) | payer MEDICARE ==
[2018-04-16 09:48] LABS: ALBUMIN 3.3 GM/DL (3.2-5.2); ALBUMIN/GLOBULIN RATIO 0.87 (1.00-1.93); ALKALINE PHOSPHATASE 149 U/L (45-117); ALT/SGPT 31 U/L (12-78); ANION GAP 13 MEQ/L (8-16); AST/SGOT 33 U/L (7-37); BILIRUBIN,DIRECT 0.7 MG/DL (0.0-0.2); BILIRUBIN,TOTAL 1.9 MG/DL (0.2-1.0); BLOOD UREA NITROGEN 30 MG/DL (7-18); CALCIUM LEVEL 9.1 MG/DL (8.8-10.2); CARBON DIOXIDE LEVEL 23 MEQ/L (21-32); CHLORIDE LEVEL 105 MEQ/L (98-107); DIGOXIN LEVEL 1.8 NG/ML (0.5-2.0); GLUCOSE, FASTING 126 MG/DL (70-100); LIPASE 161 U/L (73-393); POTASSIUM SERUM 4.7 MEQ/L (3.5-5.1); SODIUM LEVEL 141 MEQ/L (136-145); TOTAL PROTEIN 7.1 GM/DL (6.4-8.2)
[2018-04-16 10:24] LABS: BASO % 0.1 % (0.0-1.0); HEMATOCRIT 41.7 % (42.0-52.0); HEMOGLOBIN 13.3 g/dl (13.5-17.5); IMMATURE GRANULOCYTE % 0.4 % (0-3.0); LYMPH # 0.6 10^3/uL (1.5-4.5); LYMPH % 4.3 % (24.0-44.0); MEAN CORPUSCULAR HEMOGLOBIN 29.6 pg (27.0-33.0); MEAN CORPUSCULAR HGB CONC 31.9 g/dl (32.0-36.5); MEAN CORPUSCULAR VOLUME 92.7 fl (80.0-96.0); MONO # 1.3 10^3/uL (0.0-0.8); MONO % 9.6 % (0.0-5.0); NEUTROPHILS # 11.6 10^3/uL (1.8-7.7); NEUTROPHILS % 85.6 % (36.0-66.0); PLATELET COUNT, AUTOMATED 230 10^3/uL (150-450); RED CELL DISTRIBUTION WIDTH 16.6 % (11.5-14.5); WHITE BLOOD COUNT 13.5 10^3/uL (4.0-10.0)
== END 2018-04-16 12:08 | disposition home or self-care (01) ==
LOC: M ED 07:29
DX: K59.00 Constipation, unspecified (principal); E86.0 Dehydration; I12.9 Hypertensive chronic kidney disease with stage 1 through stage 4 chronic kidney disease, or unspecified chronic kidney disease; N18.3 Chronic kidney disease, stage 3 (moderate); I50.9 Heart failure, unspecified; I25.10 Atherosclerotic heart disease of native coronary artery without angina pectoris; N40.0 Benign prostatic hyperplasia without lower urinary tract symptoms; E78.9 Disorder of lipoprotein metabolism, unspecified; K21.9 Gastro-esophageal reflux disease without esophagitis; Z79.82 Long term (current) use of aspirin; Z79.899 Other long term (current) drug therapy; Z88.1 Allergy status to other antibiotic agents
CPT/HCPCS: 74019

== ENCOUNTER 2018-04-20 07:36 | Inpatient (IN) | payer MEDICARE ==
[2018-04-20 08:07] LABS: BASO % 0.1 % (0.0-1.0); HEMATOCRIT 39.5 % (42.0-52.0); HEMOGLOBIN 13.1 g/dl (13.5-17.5); IMMATURE GRANULOCYTE % 0.7 % (0-3.0); LYMPH # 0.9 10^3/uL (1.5-4.5); LYMPH % 4.8 % (24.0-44.0); MEAN CORPUSCULAR HEMOGLOBIN 29.6 pg (27.0-33.0); MEAN CORPUSCULAR HGB CONC 33.2 g/dl (32.0-36.5); MEAN CORPUSCULAR VOLUME 89.4 fl (80.0-96.0); MONO # 1.8 10^3/uL (0.0-0.8); NEUTROPHILS # 15.1 10^3/uL (1.8-7.7); NEUTROPHILS % 84.4 % (36.0-66.0); PLATELET COUNT, AUTOMATED 189 10^3/uL (150-450); RED BLOOD COUNT 4.42 10^6/uL (4.30-6.10); RED CELL DISTRIBUTION WIDTH 16.4 % (11.5-14.5); WHITE BLOOD COUNT 17.9 10^3/uL (4.0-10.0)
[2018-04-20 08:29] LABS: ALKALINE PHOSPHATASE 728 U/L (45-117); ALT/SGPT 755 U/L (12-78); ANION GAP 21 MEQ/L (8-16); AST/SGOT 798 U/L (7-37); BLOOD UREA NITROGEN 98 MG/DL (7-18); CALCIUM LEVEL 9.5 MG/DL (8.8-10.2); CARBON DIOXIDE LEVEL 17 MEQ/L (21-32); CHLORIDE LEVEL 101 MEQ/L (98-107); CPK CREATINE PHOSPHOKINASE 310 U/L (39-308); CREATININE FOR GFR 3.97 MG/DL (0.70-1.30); GLOMERULAR FILTRATION RATE 15.3 (>35); GLUCOSE, FASTING 110 MG/DL (70-100); SODIUM LEVEL 139 MEQ/L (136-145)
[2018-04-20 08:30] LABS: ALBUMIN 3.3 GM/DL (3.2-5.2); ALBUMIN/GLOBULIN RATIO 0.83 (1.00-1.93); BILIRUBIN,DIRECT 2.2 MG/DL (0.0-0.2); BILIRUBIN,TOTAL 2.9 MG/DL (0.2-1.0); LIPASE 706 U/L (73-393); TOTAL PROTEIN 7.3 GM/DL (6.4-8.2); TROPONIN I 0.26 NG/ML (< 0.10)
[2018-04-20 08:32] LABS: POTASSIUM SERUM 6.4 MEQ/L (3.5-5.1)
[2018-04-20 08:42] LABS: CK-MB VALUE MASS 7.4 NG/ML (<3.6); MB/CK RELATIVE INDEX 2.38 (< OR =4); NT-PRO BNP 54310 PG/ML (<450)
[2018-04-20 08:45] LABS: DIGOXIN LEVEL 2.8 NG/ML (0.5-2.0)
[2018-04-20] MEDS: DEXTROSE 50% 50 ML SYRINGE IV (09:06)
[2018-04-20] MEDS: SOD POLYSTYRENE SULFONATE SUSP 15 GM/60 ML UD PO (09:12)
[2018-04-20] MEDS: HumuLIN R (REGULAR) INSULIN (NovoLIN R) **100U/ML** PER UNIT IV (09:13)
[2018-04-20] MEDS: CALCIUM CHLORIDE 10% 1 GM in D5W 100 ML IV (09:14)
[2018-04-20] MEDS: NS 500 ML IV (09:19)
[2018-04-20] MEDS ORDERED: VANCOMYCIN HCL 500 MG in D5W MINI-BAG PLUS 100 ML IV (12:20)
[2018-04-20] MEDS ORDERED: ONDANSETRON 4MG/2ML VIAL (J2405) IV (12:30)
[2018-04-20] MEDS ORDERED: VANCOMYCIN INTERMITTENT/PULSE DOSING BY CLINICAL PHARMACIST PER DOSING PROTOCOL XX (13:00)
[2018-04-20] MEDS ORDERED: DIGOXIN IMMUNE FAB (OVINE) 40MG VIAL (J1162) IV (13:15)
[2018-04-20 13:20] LABS: ABG O2 SATURATION 99.1 % (95.0-99.0)
[2018-04-20] MEDS: PIPERACILLIN/TAZOBACTAM SOD 2.25 GM in D5W MINI-BAG PLUS 50 ML IV ×2 (13:23→19:00)
[2018-04-20 13:24] LABS: ABG PARTIAL PRESSURE O2 150.9 mmHg (75.0-100.0)
[2018-04-20 13:25] LABS: ABG pH (ARTERIAL) 7.468 UNITS (7.350-7.450)
[2018-04-20 13:26] LABS: ABG BASE EXCESS -6.8 (-2.0-2.0); ABG HCO3 14.2 MEQ/L (22.0-26.0); ABG TOTAL CO2 14.8 MEQ/L (23.0-31.0)
[2018-04-20 13:38] LABS: HEMATOCRIT 38.6 % (42.0-52.0); HEMOGLOBIN 12.9 g/dl (13.5-17.5); MEAN CORPUSCULAR HEMOGLOBIN 29.6 pg (27.0-33.0); MEAN CORPUSCULAR HGB CONC 33.4 g/dl (32.0-36.5); MEAN CORPUSCULAR VOLUME 88.5 fl (80.0-96.0); PLATELET COUNT, AUTOMATED 171 10^3/uL (150-450); RED BLOOD COUNT 4.36 10^6/uL (4.30-6.10); RED CELL DISTRIBUTION WIDTH 16.1 % (11.5-14.5); WHITE BLOOD COUNT 18.1 10^3/uL (4.0-10.0)
[2018-04-20 13:53] LABS: INR 1.77; PROTHROMBIN TIME 20.9 SECONDS (12.1-14.4)
[2018-04-20 13:54] LABS: PARTIAL THROMBOPLASTIN TIME 30.8 SECONDS (25.4-37.6)
[2018-04-20] MEDS: DIGOXIN IMMUNE FAB IV (13:59)
[2018-04-20] MEDS: NS IV (13:59)
[2018-04-20 14:01] LABS: LACTIC ACID SEPSIS PROTOCOL 5.7 MMOL/L (0.4-2.0)
[2018-04-20] MEDS ORDERED: LIDOCAINE 2% MDV 20 ML VIAL As Ordered (14:21)
[2018-04-20] MEDS ORDERED: HEPARIN 1,000 UNITS/ML 10ML VIAL (FOR RADIOLOGY& DIALYSIS ONLY) As Ordered (14:21)
[2018-04-20 15:17] LABS: ALBUMIN 3.2 GM/DL (3.2-5.2); ALBUMIN/GLOBULIN RATIO 0.89 (1.00-1.93); ALKALINE PHOSPHATASE 765 U/L (45-117); ALT/SGPT 789 U/L (12-78); ANION GAP 18 MEQ/L (8-16); AST/SGOT 954 U/L (7-37); BILIRUBIN,TOTAL 2.9 MG/DL (0.2-1.0); BLOOD UREA NITROGEN 100 MG/DL (7-18); CALCIUM LEVEL 9.6 MG/DL (8.8-10.2); CARBON DIOXIDE LEVEL 14 MEQ/L (21-32); CHLORIDE LEVEL 106 MEQ/L (98-107); CK-MB VALUE MASS 9.4 NG/ML (<3.6); CPK CREATINE PHOSPHOKINASE 493 U/L (39-308); CREATININE FOR GFR 3.65 MG/DL (0.70-1.30); GLOMERULAR FILTRATION RATE 16.8 (>35); GLUCOSE, FASTING 93 MG/DL (70-100); MAGNESIUM LEVEL 3.2 MG/DL (1.8-2.4); SODIUM LEVEL 138 MEQ/L (136-145); TOTAL PROTEIN 6.8 GM/DL (6.4-8.2); TROPONIN I 0.21 NG/ML (< 0.10)
[2018-04-20 15:19] LABS: POTASSIUM SERUM 5.7 MEQ/L (3.5-5.1)
[2018-04-20] MEDS ORDERED: LIDOCAINE 1% MDV 20ML VIAL As Ordered (16:06)
[2018-04-20] MEDS: HEPARIN SOD (PORCINE) 5000 UNITS/ML VIAL SC ×2 (17:18→22:00)
[2018-04-20] MEDS: VANCOMYCIN HCL 1,000 MG, VIAL MATE ADAPTER 1 EACH in D5W 250 ML IV (17:19)
[2018-04-20 20:14] LABS: CK-MB VALUE MASS 9.9 NG/ML (<3.6); CPK CREATINE PHOSPHOKINASE 559 U/L (39-308); MB/CK RELATIVE INDEX 1.77 (< OR =4); TROPONIN I 0.37 NG/ML (< 0.10)
[2018-04-20] MEDS: MIRTAZAPINE 15 MG TAB PO (20:31)
[2018-04-21] MEDS: PIPERACILLIN/TAZOBACTAM SOD 2.25 GM in D5W MINI-BAG PLUS 50 ML IV ×4 (00:28→21:10)
[2018-04-21 05:32] LABS: BASO % 0.1 % (0.0-1.0); HEMATOCRIT 39.6 % (42.0-52.0); HEMOGLOBIN 13.4 g/dl (13.5-17.5); IMMATURE GRANULOCYTE % 0.4 % (0-3.0); LYMPH % 5.2 % (24.0-44.0); MEAN CORPUSCULAR HEMOGLOBIN 29.8 pg (27.0-33.0); MEAN CORPUSCULAR HGB CONC 33.8 g/dl (32.0-36.5); MEAN CORPUSCULAR VOLUME 88.2 fl (80.0-96.0); MONO # 1.7 10^3/uL (0.0-0.8); MONO % 9.4 % (0.0-5.0); NEUTROPHILS # 15.6 10^3/uL (1.8-7.7); NEUTROPHILS % 84.9 % (36.0-66.0); PLATELET COUNT, AUTOMATED 106 10^3/uL (150-450); RED BLOOD COUNT 4.49 10^6/uL (4.30-6.10); RED CELL DISTRIBUTION WIDTH 17.2 % (11.5-14.5); WHITE BLOOD COUNT 18.4 10^3/uL (4.0-10.0)
[2018-04-21] MEDS: HEPARIN SOD (PORCINE) 5000 UNITS/ML VIAL SC ×3 (06:00→21:19)
[2018-04-21 07:11] LABS: ANION GAP 15 MEQ/L (8-16); AST/SGOT 464 U/L (7-37); BLOOD UREA NITROGEN 87 MG/DL (7-18); CALCIUM LEVEL 8.6 MG/DL (8.8-10.2); CARBON DIOXIDE LEVEL 22 MEQ/L (21-32); CHLORIDE LEVEL 103 MEQ/L (98-107); CREATININE FOR GFR 3.05 MG/DL (0.70-1.30); GLOMERULAR FILTRATION RATE 20.7 (>35); GLUCOSE, FASTING 115 MG/DL (70-100); SODIUM LEVEL 140 MEQ/L (136-145)
[2018-04-21 07:12] LABS: ALBUMIN 2.7 GM/DL (3.2-5.2); ALBUMIN/GLOBULIN RATIO 0.79 (1.00-1.93); ALKALINE PHOSPHATASE 669 U/L (45-117); ALT/SGPT 570 U/L (12-78); BILIRUBIN,TOTAL 2.5 MG/DL (0.2-1.0); MAGNESIUM LEVEL 2.9 MG/DL (1.8-2.4); TOTAL PROTEIN 6.1 GM/DL (6.4-8.2); VANCOMYCIN RANDOM 8.7 UG/ML
[2018-04-21] MEDS: MULTIVITAMINS/MINERALS THERAP 1 TAB PO (09:00)
[2018-04-21] MEDS: ATORVASTATIN 20 MG TAB PO (09:00)
[2018-04-21] MEDS: TAMSULOSIN 0.4 MG CAP PO (09:00)
[2018-04-21] MEDS: ASPIRIN 81 MG ENTERIC TAB PO (09:00)
[2018-04-21] MEDS: OMEPRAZOLE 20 MG CAP PO (09:00)
[2018-04-21] MEDS: FINASTERIDE 5 MG TAB PO (09:00)
[2018-04-21] MEDS: VITAMIN D 1,000 INTERNATIONAL UNITS TABLET PO (09:00)
[2018-04-21 09:26] LABS: ESTIMATED AVERAGE GLUCOSE 137 MG/DL (60-110); HEMOGLOBIN A1c 6.4 %
[2018-04-21 09:29] LABS: CHOLESTEROL LEVEL 91 MG/DL (<200); DIGOXIN LEVEL 3.9 NG/ML (0.5-2.0); HDL CHOLESTEROL 28 MG/DL (>40); LDL CHOLESTEROL 40.6 MG/DL (<100); NON-HDL-C 63 MG/DL; TRIGLYCERIDES LEVEL 112 MG/DL (<150)
[2018-04-21] MEDS: HEPARIN 1,000 UNITS/ML 10ML VIAL (FOR RADIOLOGY& DIALYSIS ONLY) IV (10:15)
[2018-04-21] MEDS: HEPARIN 1,000 UNITS/ML 10ML VIAL (FOR RADIOLOGY& DIALYSIS ONLY) XX (10:15)
[2018-04-21] MEDS: VANCOMYCIN HCL 1,000 MG, VIAL MATE ADAPTER 1 EACH in D5W 250 ML IV (10:24)
[2018-04-21 10:26] LABS: BEDSIDE GLUCOSE 107 MG/DL (83-110)
[2018-04-21] MEDS: VANCOMYCIN HCL 500 MG in D5W MINI-BAG PLUS 100 ML IV (11:44)
[2018-04-21 17:52] LABS: HEMATOCRIT 35.9 % (42.0-52.0); HEMOGLOBIN 12.1 g/dl (13.5-17.5); MEAN CORPUSCULAR HEMOGLOBIN 29.4 pg (27.0-33.0); MEAN CORPUSCULAR HGB CONC 33.7 g/dl (32.0-36.5); MEAN CORPUSCULAR VOLUME 87.3 fl (80.0-96.0); RED BLOOD COUNT 4.11 10^6/uL (4.30-6.10); RED CELL DISTRIBUTION WIDTH 16.3 % (11.5-14.5)
[2018-04-21] MEDS ORDERED: METOPROLOL 5 MG/5 ML VIAL IV (18:00)
[2018-04-21 18:04] LABS: PLATELET COUNT, AUTOMATED 64 10^3/uL (150-450)
[2018-04-21 18:07] LABS: IMMATURE PLATELET FRACTION % 7.6 % (0.0-10.9)
[2018-04-21 18:16] LABS: ANION GAP 12 MEQ/L (8-16); BLOOD UREA NITROGEN 55 MG/DL (7-18); CALCIUM LEVEL 8.7 MG/DL (8.8-10.2); CARBON DIOXIDE LEVEL 26 MEQ/L (21-32); CHLORIDE LEVEL 103 MEQ/L (98-107); CK-MB VALUE MASS 4.9 NG/ML (<3.6); CPK CREATINE PHOSPHOKINASE 383 U/L (39-308); CREATININE FOR GFR 2.02 MG/DL (0.70-1.30); GLOMERULAR FILTRATION RATE 33.3 (>35); GLUCOSE, FASTING 121 MG/DL (70-100); MAGNESIUM LEVEL 2.6 MG/DL (1.8-2.4); MB/CK RELATIVE INDEX 1.27 (< OR =4); POTASSIUM SERUM 3.5 MEQ/L (3.5-5.1); SODIUM LEVEL 141 MEQ/L (136-145); TROPONIN I 0.33 NG/ML (< 0.10)
[2018-04-21 18:41] LABS: BEDSIDE GLUCOSE 110 MG/DL (83-110)
[2018-04-21] MEDS: MIRTAZAPINE 15 MG TAB PO (20:07)
[2018-04-21] MEDS: METOPROLOL 5 MG/5 ML VIAL IV (21:10)
[2018-04-22] MEDS: METOPROLOL 5 MG/5 ML VIAL IV ×4 (02:57→21:00)
[2018-04-22] MEDS: PIPERACILLIN/TAZOBACTAM SOD 2.25 GM in D5W MINI-BAG PLUS 50 ML IV ×2 (04:09→10:14)
[2018-04-22 05:10] LABS: BASO % 0.1 % (0.0-1.0); HEMATOCRIT 36.7 % (42.0-52.0); HEMOGLOBIN 12.3 g/dl (13.5-17.5); IMMATURE GRANULOCYTE % 0.4 % (0-3.0); LYMPH # 0.9 10^3/uL (1.5-4.5); LYMPH % 5.5 % (24.0-44.0); MEAN CORPUSCULAR HEMOGLOBIN 29.2 pg (27.0-33.0); MEAN CORPUSCULAR HGB CONC 33.5 g/dl (32.0-36.5); MEAN CORPUSCULAR VOLUME 87.2 fl (80.0-96.0); MONO # 1.3 10^3/uL (0.0-0.8); MONO % 8.3 % (0.0-5.0); NEUTROPHILS # 13.8 10^3/uL (1.8-7.7); NEUTROPHILS % 85.7 % (36.0-66.0); RED BLOOD COUNT 4.21 10^6/uL (4.30-6.10); RED CELL DISTRIBUTION WIDTH 16.2 % (11.5-14.5); WHITE BLOOD COUNT 16.1 10^3/uL (4.0-10.0)
[2018-04-22 05:14] LABS: PLATELET COUNT, AUTOMATED 43 10^3/uL (150-450)
[2018-04-22 05:26] LABS: ALBUMIN 2.6 GM/DL (3.2-5.2); ALBUMIN/GLOBULIN RATIO 0.74 (1.00-1.93); ALKALINE PHOSPHATASE 558 U/L (45-117); ALT/SGPT 437 U/L (12-78); ANION GAP 11 MEQ/L (8-16); AST/SGOT 174 U/L (7-37); BLOOD UREA NITROGEN 61 MG/DL (7-18); CALCIUM LEVEL 8.3 MG/DL (8.8-10.2); CARBON DIOXIDE LEVEL 24 MEQ/L (21-32); CHLORIDE LEVEL 105 MEQ/L (98-107); CREATININE FOR GFR 2.39 MG/DL (0.70-1.30); GLOMERULAR FILTRATION RATE 27.4 (>35); GLUCOSE, FASTING 122 MG/DL (70-100); MAGNESIUM LEVEL 2.7 MG/DL (1.8-2.4); POTASSIUM SERUM 3.7 MEQ/L (3.5-5.1); SODIUM LEVEL 140 MEQ/L (136-145); TOTAL PROTEIN 6.1 GM/DL (6.4-8.2); VANCOMYCIN RANDOM 24.9 UG/ML
[2018-04-22] MEDS: HEPARIN SOD (PORCINE) 5000 UNITS/ML VIAL SC (05:33)
[2018-04-22] MEDS: ASPIRIN 81 MG ENTERIC TAB PO (07:30)
[2018-04-22] MEDS: OMEPRAZOLE 20 MG CAP PO (07:31)
[2018-04-22] MEDS: MULTIVITAMINS/MINERALS THERAP 1 TAB PO (07:31)
[2018-04-22] MEDS: ATORVASTATIN 20 MG TAB PO (07:31)
[2018-04-22] MEDS: FINASTERIDE 5 MG TAB PO (07:31)
[2018-04-22] MEDS: TAMSULOSIN 0.4 MG CAP PO (07:31)
[2018-04-22] MEDS: VITAMIN D 1,000 INTERNATIONAL UNITS TABLET PO (07:31)
[2018-04-22 08:06] LABS: HEPATITIS B CORE ANTIBODY IGG Negative (Negative)
[2018-04-22 08:17] LABS: REASON FOR REVIEW PLATELET MORPHOLOGY; SLIDE REVIEW Report; SOURCE PERIPHERAL SMEAR
[2018-04-22 08:41] LABS: DIGOXIN LEVEL 2.6 NG/ML (0.5-2.0)
[2018-04-22 09:31] LABS: HEPATITIS B SURFACE ANTIBODY NEGATIVE (POSITIVE)
[2018-04-22 09:38] LABS: HEPATITIS B SURFACE ANTIGEN NEGATIVE (NEGATIVE)
[2018-04-22 09:54] LABS: HEPATITIS C VIRUS ABY INDEX 0.1 INDEX (<0.8)
[2018-04-22 10:08] LABS: HEPATITIS B CORE ANTIBODY IGM NEGATIVE (NEGATIVE)
[2018-04-22] MEDS: FUROSEMIDE 100 MG/10 ML VIAL (J1940) IV (11:43)
[2018-04-22] MEDS ORDERED: MEROPENEM INJ 1 GM in APPROPRIATE DILUENT 1 EA IV (12:45)
[2018-04-22] MEDS ORDERED: VARIBAR PUDDING 40% w/v 230ML TUBE As Ordered (13:38)
[2018-04-22] MEDS ORDERED: VARIBAR NECTAR 40% w/v 240ML SUSP BTL As Ordered ×2 (13:38→13:39)
[2018-04-22] MEDS ORDERED: E-Z-PAQUE 96% w/w SUSP 176GM BTL As Ordered (13:38)
[2018-04-22] MEDS: MEROPENEM INJ 500 MG in APPROPRIATE DILUENT 1 EA IV (13:47)
[2018-04-22 14:37] LABS: LDH LACTATE DEHYDROGENASE 387 U/L (87-241)
[2018-04-22] MEDS: VANCOMYCIN HCL 750 MG, VIAL MATE ADAPTER 1 EACH in D5W 250 ML IV (17:25)
[2018-04-22] MEDS: MIRTAZAPINE 15 MG TAB PO (20:28)
[2018-04-23] MEDS: MEROPENEM INJ 500 MG in APPROPRIATE DILUENT 1 EA IV ×2 (02:50→13:20)
[2018-04-23] MEDS: METOPROLOL 5 MG/5 ML VIAL IV (02:50)
[2018-04-23 04:45] LABS: BASO % 0.1 % (0.0-1.0); HEMATOCRIT 39.7 % (42.0-52.0); HEMOGLOBIN 13.1 g/dl (13.5-17.5); IMMATURE GRANULOCYTE % 0.5 % (0-3.0); LYMPH % 6.3 % (24.0-44.0); MEAN CORPUSCULAR HEMOGLOBIN 29.1 pg (27.0-33.0); MEAN CORPUSCULAR VOLUME 88.2 fl (80.0-96.0); MONO # 1.6 10^3/uL (0.0-0.8); MONO % 9.7 % (0.0-5.0); NEUTROPHILS # 13.7 10^3/uL (1.8-7.7); NEUTROPHILS % 83.4 % (36.0-66.0); RED CELL DISTRIBUTION WIDTH 16.7 % (11.5-14.5); WHITE BLOOD COUNT 16.5 10^3/uL (4.0-10.0)
[2018-04-23 04:52] LABS: PLATELET COUNT, AUTOMATED 53 10^3/uL (150-450)
[2018-04-23 04:53] LABS: IMMATURE PLATELET FRACTION % 7.4 % (0.0-10.9)
[2018-04-23 05:07] LABS: ALBUMIN 2.7 GM/DL (3.2-5.2); ALBUMIN/GLOBULIN RATIO 0.66 (1.00-1.93); ALKALINE PHOSPHATASE 519 U/L (45-117); ALT/SGPT 425 U/L (12-78); ANION GAP 16 MEQ/L (8-16); AST/SGOT 158 U/L (7-37); BILIRUBIN,TOTAL 2.3 MG/DL (0.2-1.0); BLOOD UREA NITROGEN 77 MG/DL (7-18); CALCIUM LEVEL 8.6 MG/DL (8.8-10.2); CARBON DIOXIDE LEVEL 19 MEQ/L (21-32); CHLORIDE LEVEL 107 MEQ/L (98-107); CREATININE FOR GFR 2.68 MG/DL (0.70-1.30); GLUCOSE, FASTING 129 MG/DL (70-100); POTASSIUM SERUM 3.8 MEQ/L (3.5-5.1); SODIUM LEVEL 142 MEQ/L (136-145); TOTAL PROTEIN 6.8 GM/DL (6.4-8.2)
[2018-04-23] MEDS: ATORVASTATIN 20 MG TAB PO (09:00)
[2018-04-23] MEDS: FINASTERIDE 5 MG TAB PO (09:00)
[2018-04-23] MEDS: VITAMIN D 1,000 INTERNATIONAL UNITS TABLET PO (09:00)
[2018-04-23] MEDS: TAMSULOSIN 0.4 MG CAP PO (09:00)
[2018-04-23] MEDS: OMEPRAZOLE 20 MG CAP PO (09:00)
[2018-04-23] MEDS: MULTIVITAMINS/MINERALS THERAP 1 TAB PO (09:00)
[2018-04-23] MEDS: MIRTAZAPINE 15 MG TAB PO (20:08)
[2018-04-23] MEDS: ACETAMINOPHEN 325 MG/10.15 ML UDC PO (22:00)
[2018-04-24 00:06] LABS: HEPARIN INDUCED PLATELET ABY 0.149 OD (0.000-0.400)
[2018-04-24] MEDS: MEROPENEM INJ 500 MG in APPROPRIATE DILUENT 1 EA IV ×2 (02:58→15:58)
[2018-04-24 05:45] LABS: BASO % 0.1 % (0.0-1.0); HEMATOCRIT 37.4 % (42.0-52.0); HEMOGLOBIN 12.4 g/dl (13.5-17.5); LYMPH # 0.8 10^3/uL (1.5-4.5); LYMPH % 5.5 % (24.0-44.0); MEAN CORPUSCULAR HEMOGLOBIN 29.2 pg (27.0-33.0); MEAN CORPUSCULAR HGB CONC 33.2 g/dl (32.0-36.5); MONO # 1.6 10^3/uL (0.0-0.8); MONO % 10.5 % (0.0-5.0); NEUTROPHILS # 12.6 10^3/uL (1.8-7.7); NEUTROPHILS % 82.9 % (36.0-66.0); RED BLOOD COUNT 4.25 10^6/uL (4.30-6.10); RED CELL DISTRIBUTION WIDTH 16.8 % (11.5-14.5); WHITE BLOOD COUNT 15.2 10^3/uL (4.0-10.0)
[2018-04-24 05:48] LABS: IMMATURE PLATELET FRACTION % 7.9 % (0.0-10.9); PLATELET COUNT, AUTOMATED 67 10^3/uL (150-450)
[2018-04-24 06:02] LABS: ALBUMIN 2.5 GM/DL (3.2-5.2); ALBUMIN/GLOBULIN RATIO 0.74 (1.00-1.93); ALKALINE PHOSPHATASE 384 U/L (45-117); ALT/SGPT 338 U/L (12-78); ANION GAP 14 MEQ/L (8-16); AST/SGOT 88 U/L (7-37); BLOOD UREA NITROGEN 99 MG/DL (7-18); CALCIUM LEVEL 8.3 MG/DL (8.8-10.2); CARBON DIOXIDE LEVEL 25 MEQ/L (21-32); CHLORIDE LEVEL 107 MEQ/L (98-107); CREATININE FOR GFR 2.82 MG/DL (0.70-1.30); GLOMERULAR FILTRATION RATE 22.6 (>35); GLUCOSE, FASTING 173 MG/DL (70-100); MAGNESIUM LEVEL 3.2 MG/DL (1.8-2.4); POTASSIUM SERUM 3.4 MEQ/L (3.5-5.1); SODIUM LEVEL 146 MEQ/L (136-145); TOTAL PROTEIN 5.9 GM/DL (6.4-8.2); VANCOMYCIN RANDOM 17.2 UG/ML
[2018-04-24] MEDS: PANTOPRAZOLE 40MG INJ (PROTONIX) (C9113) IV (09:00)
[2018-04-24] MEDS: OMEPRAZOLE 20 MG CAP PO (09:00)
[2018-04-24] MEDS: MULTIVITAMINS/MINERALS THERAP 1 TAB PO (09:50)
[2018-04-24] MEDS: FINASTERIDE 5 MG TAB PO (09:50)
[2018-04-24] MEDS: TAMSULOSIN 0.4 MG CAP PO (09:50)
[2018-04-24] MEDS: ATORVASTATIN 20 MG TAB PO (09:53)
[2018-04-24] MEDS: VITAMIN D 1,000 INTERNATIONAL UNITS TABLET PO (09:53)
[2018-04-24] MEDS: LORazepam 2 MG/ML VIAL (J2060) IV (11:09)
[2018-04-24] MEDS ORDERED: VANCOMYCIN HCL 500 MG in D5W MINI-BAG PLUS 100 ML IV (12:00)
[2018-04-24] MEDS: METOCLOPRAMIDE INJ 10MG/2ML VIAL (J2765) IV (15:59)
[2018-04-24] MEDS ORDERED: METOPROLOL TART 25 MG TABLET NG (16:45)
[2018-04-24 18:12] LABS: ANION GAP 15 MEQ/L (8-16); BLOOD UREA NITROGEN 50 MG/DL (7-18); CALCIUM LEVEL 5.4 MG/DL (8.8-10.2); CARBON DIOXIDE LEVEL 16 MEQ/L (21-32); CHLORIDE LEVEL 123 MEQ/L (98-107); CREATININE FOR GFR 1.39 MG/DL (0.70-1.30); GLOMERULAR FILTRATION RATE 51.2 (>35); GLUCOSE, FASTING 95 MG/DL (70-100); MAGNESIUM LEVEL 1.8 MG/DL (1.8-2.4); SODIUM LEVEL 154 MEQ/L (136-145)
[2018-04-24 18:34] LABS: POTASSIUM SERUM 2.9 MEQ/L (3.5-5.1)
[2018-04-24] MEDS: MIRTAZAPINE 15 MG TAB PO (20:36)
[2018-04-24] MEDS: POTASSIUM CHLORIDE 10% LIQ 20 MEQ/15 ML UDC PO (20:36)
[2018-04-24] MEDS: CALCIUM CARB SUSP 1250MG/5ML UNIT DOSE CUP PO (20:36)
[2018-04-24] MEDS ORDERED: HYOSCYAMINE SULFATE 0.125 MG SUBL TABLET PO (21:30)
[2018-04-24] MEDS ORDERED: ACETAMINOPHEN TAB 650MG DOSE (2X325MG) PO (21:30)
[2018-04-24] MEDS ORDERED: BISACODYL 10 MG SUPP PR (21:30)
[2018-04-24] MEDS ORDERED: FLEET ENEMA PR (21:30)
[2018-04-24] MEDS ORDERED: MORPHINE 4 MG/ML 1ML VIAL/SYRINGE (J2270) IV (21:30)
[2018-04-24] MEDS ORDERED: ATROPINE SULFATE 1% OP SOLN 2 ML BTL SL (21:30)
[2018-04-25] MEDS: SCOPOLAMINE 1MG TRANSDERMAL PATCH TOP (01:58)
[2018-04-25] MEDS: LORazepam 2 MG/ML VIAL (J2060) IV (04:14)
[2018-04-25] MEDS: MORPHINE 10MG/0.5ML ORAL CONCENTRATE SOLUTION U/D SL (15:03)
[2018-04-25] MEDS: LORazepam 0.5 MG TAB SL (16:54)
[2018-04-27] MEDS: MORPHINE 10MG/0.5ML ORAL CONCENTRATE SOLUTION U/D SL (11:27)
[2018-04-27] MEDS: LORazepam 0.5 MG TAB SL (12:56)
== END 2018-04-27 14:05 | disposition expired | DRG 871 ==
LOC: M MS5PR 04-24 21:55 → M ED 07:36 → M ED INP 12:21 → M ICU 15:17
PROC: 02HV33Z Insertion of Infusion Device into Superior Vena Cava, Percutaneous Approach (ICD-10-PCS; principal; 2018-04-20)
PROC: B5131ZA Fluoroscopy of Right Jugular Veins using Low Osmolar Contrast, Guidance (ICD-10-PCS; 2018-04-20)
PROC: 0F9440Z Drainage of Gallbladder with Drainage Device, Percutaneous Endoscopic Approach (ICD-10-PCS; 2018-04-20)
PROC: 5A1D70Z Performance of Urinary Filtration, Intermittent, Less than 6 Hours Per Day (ICD-10-PCS; 2018-04-20)
PROC: 0JH63XZ Insertion of Tunneled Vascular Access Device into Chest Subcutaneous Tissue and Fascia, Percutaneous Approach (ICD-10-PCS; 2018-04-20)
DX: A41.9 Sepsis, unspecified organism (principal); J96.01 Acute respiratory failure with hypoxia; G93.41 Metabolic encephalopathy; I50.43 Acute on chronic combined systolic (congestive) and diastolic (congestive) heart failure; J18.9 Pneumonia, unspecified organism; N17.9 Acute kidney failure, unspecified; E87.4 Mixed disorder of acid-base balance; K81.2 Acute cholecystitis with chronic cholecystitis; I13.0 Hypertensive heart and chronic kidney disease with heart failure and stage 1 through stage 4 chronic kidney disease, or unspecified chronic kidney disease; N25.81 Secondary hyperparathyroidism of renal origin; Z51.5 Encounter for palliative care; Z66 Do not resuscitate; R65.20 Severe sepsis without septic shock; B95.2 Enterococcus as the cause of diseases classified elsewhere; D69.6 Thrombocytopenia, unspecified; I48.91 Unspecified atrial fibrillation; I25.5 Ischemic cardiomyopathy; I25.10 Atherosclerotic heart disease of native coronary artery without angina pectoris; K21.9 Gastro-esophageal reflux disease without esophagitis; N18.3 Chronic kidney disease, stage 3 (moderate); E87.5 Hyperkalemia; Z98.49 Cataract extraction status, unspecified eye; T46.0X1A Poisoning by cardiac-stimulant glycosides and drugs of similar action, accidental (unintentional), initial encounter; E78.5 Hyperlipidemia, unspecified; N40.1 Benign prostatic hyperplasia with lower urinary tract symptoms; G47.00 Insomnia, unspecified; I45.10 Unspecified right bundle-branch block; Z79.82 Long term (current) use of aspirin; Z79.899 Other long term (current) drug therapy; Z88.1 Allergy status to other antibiotic agents; Z97.8 Presence of other specified devices